=== PATIENT | male | born 1965 | race Caucasian/White ===

== ENCOUNTER → 2017-05-19 | Outpatient (CLI) | payer OTHER ==
[~2017-05-19] MED LIST: FELO10TA2 PO; LISI-725 PO; METO50TA7 PO; PRCUNK PO; SULF800T23 PO; SYN88 PO
[2017-05-19 13:19] LABS: BLOOD UREA NITROGEN 13 mg/dl (7-18); BUN/CREATININE RATIO 12.2 (10-20); CALCIUM 9.7 mg/dl (8.5-10.1); CARBON DIOXIDE 25 mmol/L (21-32); CHLORIDE 99 mmol/L (98-107); GLUCOSE 102 mg/dl (70-99); POTASSIUM 3.7 mmol/L (3.5-5.1); SODIUM 134 mmol/L (136-145)
== END | disposition home or self-care (01) ==
LOC: C.LABPVFM 10:47
PROVIDERS: ATTEND Family Medicine
DX: E03.9 Hypothyroidism, unspecified (principal); I10 Essential (primary) hypertension

== ENCOUNTER 2017-08-19 09:22 | Emergency (ER) | payer OTHER ==
[~2017-08-19] VITALS: Ht 172.7 cm; Wt 82.8 kg
[2017-08-19 09:26] VITALS: TEMP 36.4; Ht 172.7 cm; Wt 82.8 kg
[2017-08-19] MEDS ORDERED: XYLOCAINE 1%/SOD BICARB 20 ML VIAL INFIL ONE (10:00)
--- NOTE | 2017-08-19 10:38 | DIAGNOSTIC IMAGING REPORT ---
R FINGER(S) MIN 2 VIEWS ROUTINE CLINICAL HISTORY: RIGHT 2ND FINGER, EVAL FX trauma COMPARISON: None. DISCUSSION: The bones and joint spaces appear intact. There is no evidence of fracture, dislocation or bony disease. Mild soft tissue edema overlying the distal phalanx IMPRESSION: No acute bony abnormality. Mild soft tissue edema. The above report was generated using voice recognition software. It may contain grammatical, syntax or spelling errors. Electronically signed by: Kole Dodd M.D. 08/19/2017 10:37 AM Dictated Date/Time: 08/19/2017 10:36 AM
[2017-08-19] MEDS ORDERED: HYDR12.56 PO (10:57)
[2017-08-19] MEDS ORDERED: LEVO88TA PO (10:57)
--- NOTE | 2017-08-19 11:11 | EMERGENCY ROOM VISIT NOTE ---
ED Visit Note First contact with patient: 09:42 CHIEF COMPLAINT: Right second laceration at work one hour ago HISTORY OF PRESENT ILLNESS: Patient is a [id number] 51-year-old white male who accidentally cut the right second finger on a band saw at work one hour ago. He notes a mild, throbbing pain that he rates a 1/10. The bleeding has stopped. Denies weakness or numbness of the finger. REVIEW OF SYSTEMS: Review of systems as per HPI. All other systems reviewed were negative. At least 6 systems reviewed. PMH: Electronic medical records are reviewed and summarized as above/below. See Problem List. Tetanus is up-to-date. SOCIAL HISTORY: Patient lives at home himself. Non-positive tobacco and alcohol use, does not specify the amounts. PHYSICAL EXAM: Vital Signs: Reviewed Nurse's notes. There is a 2 cm long laceration on the tip of the right second finger, extending slightly into the radial aspect of the distal nail. The edges gape apart with traction. There is no foreign material in the wound and it looks clean. There is no bleeding. No deep structures such as tendons or nerves are seen in the base of the wound. Extension and flexion of the finger is full and strong. EMERGENCY DEPARTMENT COURSE: X-rays were obtained and negative for fracture or bony injury. Using sterile technique, saline and Betadine cleansing, and 1% lidocaine anesthesia, the laceration was repaired with 4, 4-0 nylon sutures. Bacitracin and a light dressing were applied. Patient tolerated the procedure well. There is no evidence for nerve, vascular or tendinous injury. I do not suspect foreign body. No fracture. Medication reconciliation: I attest that I have personally reviewed the patient' s current medication list. Blood pressure screening: Patient was found to have a slightly elevated blood pressure due to circumstances. I do not believe that the patient requires hypertension monitoring. R FINGER(S) MIN 2 VIEWS ROUTINE CLINICAL HISTORY: RIGHT 2ND FINGER, EVAL FX trauma COMPARISON: None. DISCUSSION: The bones and joint spaces appear intact. There is no evidence of fracture, dislocation or bony disease. Mild soft tissue edema overlying the distal phalanx IMPRESSION: No acute bony abnormality. Mild soft tissue edema. Problem List Medical Problems: (1) Hyperlipidemia Nec/Nos Status: Chronic (2) Hypertension Nos Status: Chronic (3) Hypothyroidism Nos Status: Chronic Surgical Problems: (1) History of Achilles tendon repair Status: Resolved (2) History of appendectomy Status: Resolved Current/Historical Medications Scheduled Felodipine (Plendil), 10 MG PO DAILY Hydrochlorothiazide (Hctz), Unknown Dose PO DAILY Levothyroxine Sodium (Synthroid), 88 MCG PO DAILY Lisinopril (Zestril), 20 MG PO DAILY Metoprolol Succ (Toprol Xl) (Toprol-Xl), 50 MG PO DAILY Allergies Coded Allergies: No Known Allergies (Verified , NONE, 08/19/17) Vital Signs Date Time Temp Pulse Resp B/P (MAP) Pulse Ox O2 Delivery O2 Flow Rate FiO2 08/19/17 12:16 58 16 151/93 100 08/19/17 09:26 36.4 56 20 133/78 100 Room Air Departure Information Impression Primary Impression: Laceration of finger Additional Impression: Work related injury Referrals Fercho Fernandez M.D. (PCP) Patient Instructions [facility] Additional Instructions Keep wound clean and dry. Do not allow any crusting or dried blood to accumulate on sutures. If this occurs, use a 1:1 solution of hydrogen peroxide/ water on a Q-tip to clean the wound. Use an antibiotic ointment for 3-4 days, then let wound dry. Suture removal in 10-12 days. Return sooner for any signs of infection (increasing redness, swelling, drainage). Ice and elevate for swelling and pain. Ibuprofen 600 mg and Tylenol 1000 mg every 6 hrs for pain. Problem Qualifiers
[2017-08-19 12:16] VITALS: BP 151/93; PULSE 58; O2SAT 100
== END 2017-08-19 12:17 | disposition home or self-care (01) ==
LOC: C.EDB 09:23
DX: S61.214A Laceration without foreign body of right ring finger without damage to nail, initial encounter (principal); W31.2XXA Contact with powered woodworking and forming machines, initial encounter; Y99.0 Civilian activity done for income or pay

== ENCOUNTER 2017-08-30 17:18 | Emergency (ER) | payer OTHER ==
[~2017-08-30] VITALS: Ht 172.7 cm; Wt 84.0 kg
[~2017-08-30 17:18] MED LIST changes: +HYDR12.56 PO; +LEVO88TA PO; -PRCUNK PO; -SULF800T23 PO; -SYN88 PO
[2017-08-30 17:38] VITALS: BP 159/88; PULSE 60; TEMP 36.7; O2SAT 99; Ht 172.7 cm; Wt 84.0 kg
--- NOTE | 2017-08-30 17:54 | EMERGENCY ROOM VISIT NOTE ---
ED Visit Note First contact with patient: 17:40 CHIEF COMPLAINT: Suture removal HPI: This patient returns to the ED today for removal of sutures in his right index finger that were placed 11 days ago. There has been no swelling, redness , or drainage from the wound. The patient feels like the laceration is healing well. REVIEW OF SYSTEMS: A complete 6 point review of systems was reviewed with the patient with pertinent positives and negatives as per history of present illness. All else were negative. PMH: The patient is healthy; there is no significant medical or surgical history. SOCIAL HISTORY: Patient lives at locally. He denies drug, alcohol, tobacco use. PHYSICAL EXAM: Vital Signs: Reviewed Nurse's notes. There is a sutured wound on the tip of the right index finger with no signs of infection. There is no erythema, swelling, or tenderness. EMERGENCY DEPARTMENT COURSE: The sutures were removed without any difficulty and there was no separation of the wound edges. Discharge instructions reviewed , the patient was discharged home in good condition. I attest that I have personally reviewed the patient's current medication list. Patient was found to have normal blood pressure on screening and does not require follow-up. DIFFERENTIAL DIAGNOSIS: infection, cellulitis, abscess, dehiscence, and others DIAGNOSIS: Healing laceration and suture removal Problem List Medical Problems: (1) Hyperlipidemia Nec/Nos Status: Chronic (2) Hypertension Nos Status: Chronic (3) Hypothyroidism Nos Status: Chronic Surgical Problems: (1) History of Achilles tendon repair Status: Resolved (2) History of appendectomy Status: Resolved Current/Historical Medications Scheduled Felodipine (Plendil), 10 MG PO DAILY Hydrochlorothiazide (Hctz), Unknown Dose PO DAILY Levothyroxine Sodium (Synthroid), 88 MCG PO DAILY Lisinopril (Zestril), 20 MG PO DAILY Metoprolol Succ (Toprol Xl) (Toprol-Xl), 50 MG PO DAILY Allergies Coded Allergies: No Known Allergies (Verified , NONE, 08/30/17) Vital Signs Date Time Temp Pulse Resp B/P (MAP) Pulse Ox O2 Delivery O2 Flow Rate FiO2 08/30/17 17:38 36.7 60 16 159/88 99 Room Air Departure Information Impression Primary Impression: Encounter for removal of sutures Additional Impression: Laceration of right index finger with damage to nail Dispostion Home / Self-Care Condition GOOD Referrals Fercho Fernandez M.D. (PCP) Patient Instructions ED Laceration Ext Sutr Stap Tape, My [facility] Additional Instructions Proper wound care is essential for adequate wound healing and infection prevention. You can shower and clean the wound with soap and water. Do not scour over the wound, pat dry with a towel. Do not submerse the wound (i.e. bathe or dish wash) until the wound has fully healed. You can use an antibiotic ointment with a dressing over the wound for the next 3-4 days. After this time you may leave the wound dry and open to the air. Keep the wound moist to help with healing. Keep it covered, especially at work. Follow-up with your PCP for re-check if necessary. Return to the ED for concerning redness, swelling, pus-like drainage, fever, chills, nausea, vomiting, or other concerning symptoms. Problem Qualifiers Additional Impression: Laceration of right index finger with damage to nail Encounter type: subsequent encounter Foreign body presence: without foreign body Qualified Codes: S61.310D - Laceration without foreign body of right index finger with damage to nail, subsequent encounter
== END 2017-08-30 18:00 | disposition home or self-care (01) ==
LOC: C.EDB 17:19 → C.EDD 18:00
DX: S61.310D Laceration without foreign body of right index finger with damage to nail, subsequent encounter (principal); X58.XXXD Exposure to other specified factors, subsequent encounter; I10 Essential (primary) hypertension; E03.9 Hypothyroidism, unspecified; Z90.89 Acquired absence of other organs; Z98.890 Other specified postprocedural states; Z79.899 Other long term (current) drug therapy

== ENCOUNTER → 2017-11-23 | Outpatient (CLI) | payer OTHER ==
[~2017-11-23] MED LIST changes: -METO50TA7 PO; +METO50TA8 PO
[2017-11-23 18:19] LABS: ALBUMIN 4.3 gm/dl (3.4-5.0); BLOOD UREA NITROGEN 20 mg/dl (7-18); CALCIUM 9.4 mg/dl (8.5-10.1); CARBON DIOXIDE 27 mmol/L (21-32); CREATININE 1.09 mg/dl (0.60-1.40); GLUCOSE 84 mg/dl (70-99); POTASSIUM 3.4 mmol/L (3.5-5.1); SODIUM 135 mmol/L (136-145)
[2017-11-23 18:20] LABS: PHOSPHORUS 3.5 mg/dl (2.5-4.9)
== END | disposition home or self-care (01) ==
LOC: C.LABPVFM 15:37
PROVIDERS: ATTEND Internal Medicine Nephrology
DX: I10 Essential (primary) hypertension (principal)

== ENCOUNTER → 2018-01-02 | Outpatient (CLI) | payer OTHER | END | disposition home or self-care (01) | LOC: C.PATHSPEC 18:02 | PROVIDERS: ATTEND Internal Medicine Nephrology | DX: R31.29 Other microscopic hematuria (principal) ==

== ENCOUNTER → 2018-01-02 | Outpatient (CLI) | payer OTHER ==
[2018-01-02 17:39] LABS: ALBUMIN 4.3 gm/dl (3.4-5.0); BLOOD UREA NITROGEN 13 mg/dl (7-18); CALCIUM 8.9 mg/dl (8.5-10.1); CARBON DIOXIDE 27 mmol/L (21-32); CREATININE 1.17 mg/dl (0.60-1.40); GLUCOSE 84 mg/dl (70-99); PHOSPHORUS 3.4 mg/dl (2.5-4.9); POTASSIUM 3.7 mmol/L (3.5-5.1); SODIUM 132 mmol/L (136-145)
== END | disposition home or self-care (01) ==
LOC: C.LABPVFM 15:27
PROVIDERS: ATTEND Family Medicine
DX: E87.6 Hypokalemia (principal); R31.29 Other microscopic hematuria; Z86.39 Personal history of other endocrine, nutritional and metabolic disease

== ENCOUNTER → 2018-01-10 | Outpatient (CLI) | payer OTHER ==
[2018-01-10 17:30] LABS: ALBUMIN 3.9 gm/dl (3.4-5.0); BLOOD UREA NITROGEN 16 mg/dl (7-18); CALCIUM 8.9 mg/dl (8.5-10.1); CARBON DIOXIDE 25 mmol/L (21-32); CREATININE 1.11 mg/dl (0.60-1.40); GLUCOSE 88 mg/dl (70-99); PHOSPHORUS 3.5 mg/dl (2.5-4.9); POTASSIUM 3.6 mmol/L (3.5-5.1); SODIUM 136 mmol/L (136-145)
== END | disposition home or self-care (01) ==
LOC: C.LABPVFM 14:27
PROVIDERS: ATTEND Internal Medicine Nephrology
DX: E87.1 Hypo-osmolality and hyponatremia (principal)

== ENCOUNTER → 2018-04-24 | Outpatient (CLI) | payer OTHER ==
[2018-04-24 17:47] LABS: ALBUMIN 4.2 gm/dl (3.4-5.0); BLOOD UREA NITROGEN 15 mg/dl (7-18); CALCIUM 9.1 mg/dl (8.5-10.1); CARBON DIOXIDE 25 mmol/L (21-32); CREATININE 1.18 mg/dl (0.60-1.40); GLUCOSE 79 mg/dl (70-99); PHOSPHORUS 2.9 mg/dl (2.5-4.9); POTASSIUM 3.6 mmol/L (3.5-5.1); SODIUM 136 mmol/L (136-145)
== END | disposition home or self-care (01) ==
LOC: C.LAB1850 16:06
PROVIDERS: ATTEND Internal Medicine Nephrology
DX: E87.1 Hypo-osmolality and hyponatremia (principal)